=== PATIENT | female | born 1960 | race Caucasian/White ===

== ENCOUNTER 2023-07-01 19:54 | Emergency (ER) | payer BC, SELFPAY ==
--- NOTE | ~2023-07-01 | XR_ITS ---
PA, oblique, and lateral views of the right fourth finger CLINICAL HISTORY: Laceration FINDINGS: No fracture or dislocation seen. Osseous alignment is anatomic. Soft tissues are unremarkab le. IMPRESSION: Unremarkable exam. Reviewed, dictated and finalized at [facility]. IMPRESSION: Unremarkable exam.
[2023-07-01 19:58] VITALS: BP 164/90; PULSE 86; RESP 16; TEMP 36.4; O2SAT 97
--- NOTE | 2023-07-01 20:21 | ED.WOUNDLAC ---
HPI - Wound/Laceration General Chief Complaint: Wound/Laceration Stated Complaint: wound to right ring finger Time Seen by Provider: 07/01/23 20:10 Source: patient and RN notes reviewed Mode of arrival: ambulatory Limitations: no limitations History of Present Illness HPI narrative: This is a 62 year old female right hand dominant who presents for evaluation of right ring finger laceration. She states she accidentally cut her finger on tracer powder blender blade just prior to arrival. She was able to get bleeding under control. She reports minimal pain. Tetanus is greater than 10 years, . Related Data Allergies Allergy/AdvReac Type Severity Reaction Status Date / Time No Known Allergies Allergy Verified 07/01/23 19:55 Exam Const: General: no acute distress and alert Nutritional Appearance: well nourished Orientation/consciousness: patient oriented x3 HENMT: Head: normal to inspection Eyes: EOM: EOMs intact bilaterally Resp: Effort & Inspection: normal respiratory effort Neuro: General: patient oriented x3, moves all extremities and CN's II-XI intact bilaterally Extrem: Other: right hand full ROM fingers, that is laceration 1 cm right ring finger, longitudinal. Psych: Mental Status: mental status grossly normal Affect: normal affect Attitude: cooperative Course Reevaluation(s) Reevaluation #1: I reviewed with patient wound care regarding her laceration and suture removal. Date: 07/01/23 Time: 21:30 Vital Signs Vital signs: Vital Signs Temperature 97.6 F 07/01/23 19:58 Pulse Rate 86 07/01/23 19:58 Respiratory Rate 16 07/01/23 19:58 Blood Pressure 164/90 H 07/01/23 19:58 Pulse Oximetry 97 07/01/23 19:58 Oxygen Delivery Room Air 07/01/23 19:58 Temperature 97.6 F 07/01/23 19:58 Pulse Rate 80 07/01/23 21:40 Respiratory Rate 18 07/01/23 21:40 Blood Pressure 148/89 H 07/01/23 21:40 Pulse Oximetry 99 07/01/23 21:40 Oxygen Delivery Room Air 07/01/23 19:58 Procedures Laceration Laceration 1: Date: 07/01/23 Time: 21:29 Site: hand (right 4th finger) Side (If applicable): right Size (cm): 1 Description: flap Depth: simple, single layer Local Anesthetic: lidocaine 1% Pre-repair: wound explored and irrigated ====== Skin Level ====== Skin layer closed with: prolene Size (cm): 4-0 Number of sutures: 7 Technique: simple, interrupted ====== Subcutaneous Layer ====== ====== Muscle Layer ====== ====== Tendon Layer ====== MDM - Wound/Laceration MDM Narrative Medical decision making narrative: -xray ordered -tetanus ordered laceration repaired. Differential Diagnosis Differential diagnosis: Likely laceration Imaging Data Attestation: I personally reviewed and interpreted this imaging study as follows: My impression: right 4th finger xray- no foreign body, no fracture Radiologist's impression: ITS Impressions Finger X-Ray 07/01/23 21:45 IMPRESSION: Unremarkable exam. Discharge Plan Discharge Clinical Impression: Laceration of finger of right hand Patient Disposition: Home, Self-Care Condition: Stable Instructions: Antibiotic Form, Care For Your Stitches (ED), Finger Laceration (ED) Additional Instructions: you will need to have sutures removed in 10-14 days. Read discharge instructions regarding care Follow-up/Referrals: Ayala,Vanda Us, [employer] [Primary Care Provider] -
[2023-07-01] MEDS: TETANUS,DIPHTHERIA,AC PERTUSSIS ADULT (0.5 ML) BOOSTRIX IM (20:31)
[2023-07-01] MEDS: LIDOCAINE HCL 1% LOCAL INJ 10 ML VIAL 3 ML INFILTRATE (21:34)
[2023-07-01 21:40] VITALS: BP 148/89; PULSE 80; RESP 18; O2SAT 99
== END 2023-07-01 21:42 | disposition home or self-care (01) ==
PROVIDERS: Emergency Provider General Practice; PCP Nurse Practitioner Family
DX: S61.214A Laceration without foreign body of right ring finger without damage to nail, initial encounter (principal); Z23 Encounter for immunization; W29.0XXA Contact with powered kitchen appliance, initial encounter
CPT/HCPCS: 12001; 73140; 90471; 90715; 99283